=== PATIENT | male | born 1965 | race Caucasian/White ===

== ENCOUNTER 2021-11-06 20:47 | Emergency (ER) | payer OTHER ==
[2021-11-07 00:29] LABS: BASOPHIL 0.2 % (0-2); EOSINOPHIL 0 % (0-5); HCT 47.5 % (42.0-52.0); HGB 16.4 g/dl (13.2-18.0); LYMPHOCYTE 20.2 % (15-48); MCH 30.3 pg (25.0-31.0); MCHC 34.5 g/dL (32.0-36.0); MCV 87.8 fL (78.0-100.0); MONOCYTE 17.3 % (0-12); MPV 10.6 fL (6.0-9.5); NEUTROPHIL 61.7 % (41-80); NRBC 0; PLT 149 K/uL (150-400); RBC 5.41 M/uL (4.70-6.00); RDW 12.5 % (11.5-14.0); WBC 4.8 K/uL (4.0-10.5)
[2021-11-07 01:26] LABS: ALBUMIN 3.7 g/dL (3.4-5.0); BILIRUBIN - TOTAL 0.5 mg/dL (0.2-1.0); CREATININE 1.09 mg/dL (0.67-1.17); GLOBULIN (CALCULATION) 4.2 g/dL; POTASSIUM 4.1 mmol/L (3.5-5.1); TOTAL PROTEIN 7.9 g/dL (6.4-8.2)
[2021-11-07] MEDS ORDERED: PROMETHEGA12.5 MG/SU PR (03:14)
[2021-11-07] MEDS ORDERED: PEPCID AC20 MG PO (03:14)
[2021-11-07] MEDS ORDERED: ONDANSETRON ODT4 MG SL (03:14)
[2021-11-07] MEDS ORDERED: IBUPROFEN800 MG PO (03:14)
[2021-11-07] MEDS ORDERED: PULMICORT FLE180 MCG INH (03:14)
== END 2021-11-07 03:30 | disposition home or self-care (01) ==
LOC: FER 20:47
PROVIDERS: Emergency Medicine Emergency Medical Services
DX: U07.1 COVID-19 (principal); E86.0 Dehydration; E11.9 Type 2 diabetes mellitus without complications; I10 Essential (primary) hypertension; E89.0 Postprocedural hypothyroidism; Z79.890 Hormone replacement therapy; Z79.899 Other long term (current) drug therapy
CPT/HCPCS: 36415; 36600; 71045; 80053; 82803; 83880; 84484; 85025; 85379; 93005; J2405; J7120; U0002